=== PATIENT | male | born 1960 | race African-American/Black ===

== ENCOUNTER 2019-03-02 09:29 | Day surgery (SDC) | payer OTHER ==
[2019-03-02 10:04] VITALS: BMI 28.5
--- NOTE | 2019-03-02 11:05 | HP ---
History & Physical Update - History History: No Change - Physical Physical: No Change - Assessment Assessment: No Change - Plan Plan: No Change
--- NOTE | 2019-03-02 11:09 | OP ---
Operative Note - Note: Operative Date: 03/02/19 Pre-Operative Diagnosis: prostate cancer Operation: cystoscopy and prostate cryoablation Post-Operative Diagnosis: Same as Pre-op Anesthesiologist/ASSOCIATE MEDIA DIRECTOR: Vickie Hernandez Anesthesia: General Estimated Blood Loss (mls): 0 Drains & Tubes with Location: 18 fr victor Operative Report Dictated: Yes
[2019-03-02] MEDS ORDERED: PROPOFOL 20 ML ONE ×2 (11:29→11:38)
[2019-03-02] MEDS ORDERED: ceFAZolin SODIUM 1 GM VIAL IVPB ONE (11:43)
[2019-03-02] MEDS ORDERED: ceFAZolin SODIUM 1 GM VIAL ONE (11:47)
[2019-03-02] MEDS ORDERED: DEXAMETHASONE SOD PHOSPHATE 4 MG/1 ML VIAL ONE ×2 (11:55→11:56)
[2019-03-02] MEDS ORDERED: BACITRACIN 15 GM TUBE TOPICAL OINTMENT TP ONE (12:40)
[2019-03-02] MEDS ORDERED: ONDANSETRON 4 MG/2 ML VIAL IVPUSH PRN (13:07)
[2019-03-02] MEDS ORDERED: oxyCODONE HCL 5 MG TABLET PO PRN (13:07)
[2019-03-02] MEDS ORDERED: ACETAMINOPHEN 325 MG TABLET (FP) PO PRN (13:07)
[2019-03-02] MEDS ORDERED: LACTATED RINGERS SOLUTION 1,000 ML IV SCH (13:15)
--- NOTE | 2019-03-02 13:46 | OP ---
DATE OF OPERATION: 03/02/2019 PREOPERATIVE DIAGNOSIS: Prostate cancer. POSTOPERATIVE DIAGNOSIS: Prostate cancer PROCEDURES: Prostate cryoablation and cystoscopy. SURGEON: Oswaldo Aguila MD [employer] PROJECT MANAGER: None. ANESTHESIA: General via laryngeal mask. ANESTHESIOLOGIST: Vickie Hernandez DO SPECIMENS: None. CULTURES: None. DRAINS: 18-Upper Sorbian Machado catheter. ESTIMATED BLOOD LOSS: Negligible. COMPLICATIONS: None. PROCEDURE: Patient was brought in the operating room and placed on the operating table in the supine position. After administration of general anesthesia via laryngeal mask, intravenous antibiotics were administered. Sequential compression devices were placed. Patient was placed in the dorsal lithotomy position and the perineum was shaved first and the genitals and perineum were prepped and draped in the usual manner. An 18-Upper Sorbian Machado catheter was placed per urethra into the bladder, 10 mL placed in the balloon, and then the bladder was filled with approximately 400 mL of sterile normal saline and clamped. Ioban was placed to elevate the scrotum. Now, the transrectal ultrasound probe was inserted into the rectum and transrectal ultrasound of the prostate was done. Measurements were taken and a plan was devised for a focal right-sided cryoablation. Now, once the plan was devised, the three cryoablation probes were placed in the appropriate locations under ultrasound guidance. Now, two temperature sensors were placed, one in Den[place]villiers fascia and one in the external sphincter. Now, the indwelling Machado catheter was removed. Flexible cystoscopy was confirmed, demonstrated no probes had penetrated the urethra. Anterior urethra was normal. Prostatic urethra measured approximately 4 cm in length, demonstrated mild bilobar intrusion. Bladder was entered and thoroughly inspected. There were no foreign bodies, tumors, stones, inflammation. Both ureteral orifices were in their usual location with clear efflux bilaterally. The cystoscope was retroflexed upon itself and the bladder neck was inspected and no probes had penetrated the bladder. Now, a Super Stiff guide wire was passed through the cystoscope. The cystoscope was removed. Now, the urethral warmer was passed over the Super Stiff guide wire, into the bladder. Urethral warming was started and then the ablation was performed with two freeze-thaw cycles. Measurements had been taken and probes set to the appropriate length. At the end of the procedure, the ablation probes were removed. Manual pressure on the perineum achieved hemostasis. Urethral warmer was left in place for an additional 5 minutes. The urethral warmer was removed. The 18-Upper Sorbian Machado catheter was replaced. A sterile compressive dressing on the perineum was applied with 4 x 4's and Tegaderm. He tolerated the procedure well, was awoken from anesthesia in the operating room, extubated, and transferred to the recovery room in stable condition. OSWALDO AGUILA M.D. [id number]
[2019-03-02 17:41] VITALS: BP 130/70; PULSE 70; TEMP 97.8
== END 2019-03-02 17:50 | disposition home or self-care (01) ==
LOC: JASU-SURG 09:29
PROVIDERS: ATTEND Urology
PROC: 0V503ZZ Destruction of Prostate, Percutaneous Approach (ICD-10-PCS; principal; 2019-03-02 12:00)
PROC: BV49ZZZ Ultrasonography of Prostate and Seminal Vesicles (ICD-10-PCS; 2019-03-02 12:00)
DX: C61 Malignant neoplasm of prostate (principal)
CPT/HCPCS: 55873; C2618; 94760

== ENCOUNTER 2019-05-25 10:13 | Day surgery (SDC) | payer OTHER ==
[2019-05-24 15:00] VITALS: BMI 29.1
--- NOTE | 2019-05-25 11:36 | HP ---
History & Physical Update - History History: No Change - Physical Physical: No Change - Assessment Assessment: No Change - Plan Plan: No Change
--- NOTE | 2019-05-25 11:38 | OP ---
Operative Note - Note: Operative Date: 05/25/19 Pre-Operative Diagnosis: prostate cancer Operation: prostate cryoablation and cystoscopy Findings: prostate cancer Post-Operative Diagnosis: Same as Pre-op Surgeon: Oswalod Figueroa Anesthesiologist/DENTAL OFFICE ASSISTANT: Gina Linda Anesthesia: General Estimated Blood Loss (mls): 0 Drains & Tubes with Location: 18 fr victor Operative Report Dictated: Yes
[2019-05-25] MEDS ORDERED: MIDAZOLAM HCL 2 MG/2 ML SINGLE DOSE VIAL ONE (13:19)
[2019-05-25] MEDS ORDERED: DESFLURANE GAS 240 ML BOTTLE IH ONE (13:20)
[2019-05-25] MEDS ORDERED: ceFAZolin SODIUM 1 GM VIAL IVPB ONE (13:29)
[2019-05-25] MEDS ORDERED: ceFAZolin SODIUM 1 GM VIAL ONE (13:43)
[2019-05-25] MEDS ORDERED: DEXAMETHASONE SOD PHOSPHATE 4 MG/1 ML VIAL ONE (13:43)
[2019-05-25] MEDS ORDERED: BACITRACIN 15 GM TUBE TOPICAL OINTMENT ONE (14:38)
--- NOTE | 2019-05-25 16:13 | OP ---
DATE OF OPERATION: 05/25/2019 PREOPERATIVE DIAGNOSIS: Prostate cancer. POSTOPERATIVE DIAGNOSIS: Prostate cancer PROCEDURES: Prostate cryoablation and cystoscopy. SURGEON: Oswaldo Figueroa MD INFORMATION TECHNOLOGY ARCHITECT: None. ANESTHESIA: General via mask. ANESTHESIOLOGIST: Zaheer Ramirez MD SPECIMENS: None. CULTURES: None. DRAINS: An 18-Liberian Machado catheter. ESTIMATED BLOOD LOSS: None. COMPLICATIONS: None. DESCRIPTION OF PROCEDURE: Procedure was as follows. Patient was brought in the operating room, placed on the operating room table in the supine position. After administration of general anesthesia via laryngeal mask, intravenous antibiotics were administered, sequential compression devices were placed. Patient was placed in dorsal lithotomy position. The perineum was shaved first and the perineum and genitals were prepped and draped in the usual manner. An 18-Liberian Machado catheter was placed per urethra into the bladder, 10 mL was placed in the balloon, and the bladder was then filled with 400 mL of sterile normal saline, and clamped. Testicles and scrotum were elevated with a towel and an Ioban. The area was prepped and draped in the usual sterile manner. The ultrasound probe was placed per rectum, and transrectal ultrasound of the prostate was done, and a plan was devised for a focal, right-sided cryoablation. Four cryoprobes were used. Once the plan was devised, measurements were taken, and the probes were placed in the appropriate location, as were the two temperature sensors, one in Denonvilliers fascia and one in the external sphincter. Now, cystoscopy was performed that demonstrated no stones had perforated the urethra or the bladder. The Super Stiff guide wire was passed through the cystoscope into the bladder. Cystoscope removed. The urethral warmer was now passed over the Super Stiff guide wire into the bladder and removed. Urethral warming was started. The position of the probes was now reconfirmed and now the cryoablation was done with two freeze-thaw cycles. At the end of the procedure, the cryoprobes were removed, as were the temperature sensors. Direct compression around the perineum achieved hemostasis. The urethral warmer was left in place an additional 5 minutes. The 18-Liberian Machado catheter was replaced. A sterile compressive dressing on the perineum was applied with bacitracin, 4 x 4, and Tegaderm. He tolerated the procedure well. Transferred to recovery room in stable condition. Braden [id number]
[2019-05-25 19:25] VITALS: BP 140/72; PULSE 77; TEMP 98.6
== END 2019-05-25 19:00 | disposition home or self-care (01) ==
LOC: JASU-SURG 10:13
PROVIDERS: ATTEND Urology
PROC: 0V503ZZ Destruction of Prostate, Percutaneous Approach (ICD-10-PCS; principal; 2019-05-25 13:00)
PROC: BV49ZZZ Ultrasonography of Prostate and Seminal Vesicles (ICD-10-PCS; 2019-05-25 13:00)
DX: C61 Malignant neoplasm of prostate (principal)
CPT/HCPCS: 55873; C2618; 94760